=== PATIENT | female | born 1930 | race Caucasian/White ===

== ENCOUNTER → 2018-05-06 | Outpatient (CLI) | payer MEDICARE, BC ==
[~2018-05-06] MED LIST: ALBUTEROL 0.083% (NEB) 2.5 MG/3 ML AMP
== END | disposition home or self-care (01) ==
LOC: PUL 10:48
DX: J44.9 Chronic obstructive pulmonary disease, unspecified (principal)
CPT/HCPCS: 94060; 94664; 94726; 94729